=== PATIENT | male | born 1935 | race Caucasian/White ===

== ENCOUNTER 2022-10-06 18:45 | Inpatient (IN) | payer MEDICARE, OTHER ==
[~2022-10-06] VITALS: Ht 172.7 cm; Wt 75.7 kg
[2022-10-06] MEDS ORDERED: INSU100V SQ (19:17)
[2022-10-06] MEDS ORDERED: MERO1VIA22 IV (19:17)
[2022-10-06] MEDS ORDERED: FURO20 PO (19:17)
[2022-10-06] MEDS ORDERED: HEPA500018 SQ (19:17)
[2022-10-06 19:34] LABS: BASOPHILS % (AUTO) 0.3 % (0.0-2.0); EOSINOPHILS % (AUTO) 1.7 % (1.0-6.0); HEMATOCRIT 38.7 % (41-53); HEMOGLOBIN 12.7 g/dL (13.5-17.5); MEAN CORPUSCULAR HEMOGLOBIN 30.2 pg (26.0-34.0); MEAN CORPUSCULAR HGB CONC 32.7 G/dL (31.0-37.0); MEAN CORPUSCULAR VOLUME 92 fL (80-100); MONOCYTES # (AUTO) 0.7 K/uL (0.1-1.0); MONOCYTES % (AUTO) 7.6 % (2.0-9.0); NEUTROPHILS # (AUTO) 5.7 K/uL (1.8-7.7); NEUTROPHILS % (AUTO) 59.4 % (40.0-70.0); PLATELET COUNT (AUTO) 210 K/uL (150-450); RED CELL DISTRIBUTION WIDTH 16.2 % (11.5-14.5)
[2022-10-06 19:38] LABS: ANION GAP 6 mmol/L (8-16); CALCIUM, TOTAL 8.7 mg/dL (8.8-10.5); CARBON DIOXIDE 29 mmol/L (22-29); CHLORIDE 103 mmol/L (98-107); CREATININE 0.63 mg/dL (0.60-1.30); GLOMERULAR FILTR. RATE CALC > 60 mL/min (>60); GLUCOSE,RANDOM 99 mg/dL (70-110); POTASSIUM 4.3 mmol/L (3.5-5.1); SODIUM SERUM 138 mmol/L (136-145); UREA NITROGEN, BLOOD 18 mg/dL (7-18)
[2022-10-06 19:42] LABS: INR 1.1 (0.9-1.1); PROTHROMBIN TIME 11.6 SEC (9.4-11.6)
[2022-10-06 19:44] LABS: ALANINE AMINOTRANSFERASE 53 U/L (12-78); ALBUMIN 2.7 g/dL (3.4-5.0); ALKALINE PHOSPHATASE 95 U/L (46-116); ASPARTATE AMINOTRANSFERASE 28 U/L (15-37); BILIRUBIN,TOTAL 2.2 mg/dL (0.1-1.0); TOTAL PROTEIN, SERUM 6.2 g/dL (6.4-8.2)
[2022-10-06 19:51] LABS: COVID AG,FIA SOURCE NASAL SWAB
[2022-10-06 20:08] LABS: B-TYPE NATRIURETIC PEPTIDE 271 pg/mL (0-100)
[2022-10-06] MEDS ORDERED: ACETAMINOPHEN 325 MG TABLET PO PRN (20:15)
[2022-10-06] MEDS ORDERED: MORPHINE SULFATE 2 MG/ML SYRINGE IVP PRN (20:15)
[2022-10-06] MEDS ORDERED: ZOLPIDEM TARTRATE 5 MG TABLET PO PRN (20:15)
[2022-10-06] MEDS ORDERED: ONDANSETRON HCL 4 MG/2 ML VIAL IVP PRN (20:15)
[2022-10-06] MEDS ORDERED: IPRATROPIUM BROMIDE 0.5 MG/2.5 ML NEB SOLUTION NEB PRN (20:15)
[2022-10-06] MEDS ORDERED: BISACODYL 10 MG RECTAL RECTAL SUPPOSITORY PR PRN (20:15)
[2022-10-06] MEDS ORDERED: MAGNESIUM HYDROXIDE SUSPENSION 30 ML UDCUP PO PRN (20:15)
[2022-10-06] MEDS ORDERED: ALBUTEROL SULFATE 2.5 MG/0.5 ML NEB SOLUTION NEB PRN (20:15)
[2022-10-06 20:22] LABS: APPEARANCE,URINE CLEAR (CLEAR); BILIRUBIN,URINE NEGATIVE (NEGATIVE); GLUCOSE, URINE (UA) NEGATIVE (NEGATIVE); KETONES,URINE NEGATIVE (NEGATIVE); LEUKOCYTE ESTERASE ,URINE MODERATE (NEGATIVE); NITRATE,URINE NEGATIVE (NEGATIVE); OCCULT BLOOD,URINE MODERATE (NEGATIVE); PH,URINE 6.5 (5.0-8.0); PROTEIN,URINE 30-70 mg/dL (NEGATIVE); SPECIFIC GRAVITIY, URINE 1.012 (1.003-1.030)
[2022-10-06 20:31] LABS: BACTERIA,URINE Rare /HPF (None Seen)
[2022-10-06] MEDS: DOCUSATE SODIUM 100 MG CAPSULE PO SCH (20:56)
[2022-10-06] MEDS: HEPARIN SODIUM,PORCINE 5,000 UNITS/ML VIAL SQ SCH (23:36)
[2022-10-07] VITALS (7 sets, daily range): BP systolic 106–123; BP diastolic 53–74
[2022-10-07] MEDS: FUROSEMIDE 20 MG/2 ML VIAL IVP SCH (08:29)
[2022-10-07] MEDS: PANTOPRAZOLE SODIUM 40 MG/VIAL IVP SCH (08:29)
[2022-10-07] MEDS: HEPARIN SODIUM,PORCINE 5,000 UNITS/ML VIAL SQ SCH ×2 (08:29→16:00)
[2022-10-07] MEDS: DOCUSATE SODIUM 100 MG CAPSULE PO SCH ×2 (08:31→20:32)
[2022-10-07] MEDS ORDERED: VERAPAMIL HCL 2.5 MG/ML 2 ML VIAL ONE (14:45)
[2022-10-07] MEDS ORDERED: NITROGLYCERIN 50 MG/D5% WATER 250 ML ONE (14:45)
[2022-10-07] MEDS ORDERED: IOHEXOL 300 MG/ML 50 ML VIAL ONE (14:45)
[2022-10-07] MEDS ORDERED: SODIUM BICARBONATE 50 MEQ/50 ML VIAL ONE (14:46)
[2022-10-07] MEDS ORDERED: HEPARIN SODIUM 1000 UNITS/NS 1,000 ML ONE (14:46)
[2022-10-07] MEDS ORDERED: IOHEXOL 300 MG/ML 100 ML VIAL ONE (14:46)
[2022-10-07] MEDS ORDERED: LIDOCAINE/PF 1% 30 ML VIAL ONE (14:46)
[2022-10-07] MEDS ORDERED: LIDOCAINE 1% 30 ML/SOD BICARB 8.4% 4 ML SQ ONE (15:30)
[2022-10-07] MEDS ORDERED: VERAPAMIL HCL 2.5 MG/ML 2 ML VIAL IARTER ONE (15:30)
[2022-10-07] MEDS ORDERED: HEPARIN SODIUM 1000 UNITS/NS 1,000 ML IARTER ONE (15:30)
[2022-10-07] MEDS ORDERED: NITROGLYCERIN/D5W 50 MG/250 ML IV BOTTLE IARTER ONE (15:30)
[2022-10-07] MEDS ORDERED: SODIUM CHLORIDE 0.9% 500 ML IV ONE (15:30)
[2022-10-07] MEDS ORDERED: IOHEXOL 300 MG/ML 100 ML VIAL ICOR ONE (15:30)
[2022-10-07] MEDS ORDERED: HEPARIN SODIUM,PORCINE 1,000 UNITS/ML 10 ML VIAL IARTER ONE (15:30)
[2022-10-07] MEDS ORDERED: MIDAZOLAM HCL 2 MG/2 ML VIAL ONE (15:32)
[2022-10-07] MEDS ORDERED: FentaNYL CITRATE PF 100 MCG/2 ML VIAL ONE (15:32)
[2022-10-07] MEDS ORDERED: PHENYLEPHRINE HCL IN 0.9% NACL 400 MCG/10 ML SYRINGE IVP ONE (15:46)
[2022-10-07] MEDS: METOPROLOL SUCCINATE 25 MG ER TABLET PO SCH (20:32)
[2022-10-07] MEDS: SACUBITRIL/VALSARTAN 24-26 MG TABLET PO SCH (20:32)
[2022-10-07] MEDS ORDERED: *CLINICAL-MEROPENEM DOSING CLINICAL ONE (23:30)
[2022-10-08 00:19] VITALS: BP 99/64
[2022-10-08] MEDS: HEPARIN SODIUM,PORCINE 5,000 UNITS/ML VIAL SQ SCH ×4 (00:56→15:21)
[2022-10-08] MEDS: MEROPENEM 1 GM in SODIUM CHLORIDE 0.9% 100 ML IV SCH ×3 (01:01→15:18)
[2022-10-08 04:20] VITALS: BP 93/62
[2022-10-08 06:19] LABS: BASOPHILS % (AUTO) 0.6 % (0.0-2.0); EOSINOPHILS % (AUTO) 2.4 % (1.0-6.0); HEMATOCRIT 38.9 % (41-53); HEMOGLOBIN 13.4 g/dL (13.5-17.5); LYMPHOCYTES % (AUTO) 30.9 % (22.0-44.0); MEAN CORPUSCULAR HEMOGLOBIN 31.4 pg (26.0-34.0); MEAN CORPUSCULAR HGB CONC 34.4 G/dL (31.0-37.0); MEAN CORPUSCULAR VOLUME 91 fL (80-100); MONOCYTES # (AUTO) 0.7 K/uL (0.1-1.0); NEUTROPHILS # (AUTO) 5.7 K/uL (1.8-7.7); NEUTROPHILS % (AUTO) 59.1 % (40.0-70.0); PLATELET COUNT (AUTO) 226 K/uL (150-450); RED BLOOD CELL COUNT(AUTO) 4.26 MIL/uL (4.50-5.90); RED CELL DISTRIBUTION WIDTH 16.3 % (11.5-14.5)
[2022-10-08 06:36] LABS: ANION GAP 3 mmol/L (8-16); CALCIUM, TOTAL 8.6 mg/dL (8.8-10.5); CARBON DIOXIDE 29 mmol/L (22-29); CHLORIDE 105 mmol/L (98-107); CREATININE 0.75 mg/dL (0.60-1.30); GLOMERULAR FILTR. RATE CALC > 60 mL/min (>60); GLUCOSE,RANDOM 106 mg/dL (70-110); PHOSPHORUS 2.9 mg/dL (2.5-4.9); POTASSIUM 4.5 mmol/L (3.5-5.1); SODIUM SERUM 137 mmol/L (136-145); UREA NITROGEN, BLOOD 21 mg/dL (7-18)
[2022-10-08 07:31] VITALS: BP 113/62
[2022-10-08] MEDS: PANTOPRAZOLE SODIUM 40 MG/VIAL IVP SCH (08:28)
[2022-10-08] MEDS: SACUBITRIL/VALSARTAN 24-26 MG TABLET PO SCH ×2 (08:29→20:47)
[2022-10-08] MEDS: METOPROLOL SUCCINATE 25 MG ER TABLET PO SCH (08:29)
[2022-10-08] MEDS: DOCUSATE SODIUM 100 MG CAPSULE PO SCH ×2 (08:29→20:47)
[2022-10-08] MEDS: FUROSEMIDE 20 MG/2 ML VIAL IVP SCH (08:29)
[2022-10-08 12:55] VITALS: BP 104/67
[2022-10-08] MEDS: ASPIRIN 81 MG DR TABLET PO SCH (15:17)
[2022-10-08] MEDS: ATORVASTATIN CALCIUM 40 MG TABLET PO SCH (15:17)
[2022-10-08 15:27] VITALS: BP 101/61
[2022-10-08 20:00] VITALS: BP 99/62
[2022-10-09] VITALS (15 sets, daily range): BP systolic 90–126; BP diastolic 51–76
[2022-10-09] MEDS: HEPARIN SODIUM,PORCINE 5,000 UNITS/ML VIAL SQ SCH ×4 (00:39→23:42)
[2022-10-09] MEDS: MEROPENEM 1 GM in SODIUM CHLORIDE 0.9% 100 ML IV SCH ×4 (00:39→23:41)
[2022-10-09] MEDS ORDERED: VANCOMYCIN HCL 1 GM/VIAL ONE (08:06)
[2022-10-09] MEDS ORDERED: SODIUM BICARBONATE 50 MEQ/50 ML VIAL ONE (08:06)
[2022-10-09] MEDS ORDERED: IOHEXOL 300 MG/ML 50 ML VIAL ONE (08:06)
[2022-10-09] MEDS ORDERED: LIDOCAINE/PF 1% 30 ML VIAL ONE (08:06)
[2022-10-09] MEDS: CLOPIDOGREL BISULFATE 75 MG TABLET PO SCH (09:00)
[2022-10-09] MEDS: FUROSEMIDE 20 MG TABLET PO SCH (09:00)
[2022-10-09] MEDS: ATORVASTATIN CALCIUM 40 MG TABLET PO SCH (09:00)
[2022-10-09] MEDS: PANTOPRAZOLE SODIUM 40 MG/VIAL IVP SCH (09:00)
[2022-10-09] MEDS: SACUBITRIL/VALSARTAN 24-26 MG TABLET PO SCH ×2 (09:00→20:59)
[2022-10-09] MEDS: ASPIRIN 81 MG DR TABLET PO SCH (09:00)
[2022-10-09] MEDS: METOPROLOL SUCCINATE 25 MG ER TABLET PO SCH (09:00)
[2022-10-09] MEDS: DOCUSATE SODIUM 100 MG CAPSULE PO SCH ×2 (09:00→20:59)
[2022-10-09] MEDS ORDERED: DiphenhydrAMINE HCL 50 MG/ML VIAL ONE (09:03)
[2022-10-09] MEDS ORDERED: MIDAZOLAM HCL 2 MG/2 ML VIAL ONE (09:03)
[2022-10-09] MEDS ORDERED: FentaNYL CITRATE PF 100 MCG/2 ML VIAL ONE (09:03)
[2022-10-09] MEDS ORDERED: DEXTROSE 5% IV ONE (09:30)
[2022-10-09] MEDS ORDERED: FentaNYL CITRATE PF 100 MCG/2 ML VIAL IVP ONE ×2 (09:30)
[2022-10-09] MEDS ORDERED: MIDAZOLAM HCL 2 MG/2 ML VIAL PO ONE (09:30)
[2022-10-09] MEDS ORDERED: WATER IV ONE (09:30)
[2022-10-09] MEDS ORDERED: VANCOMYCIN HCL IV ONE (09:30)
[2022-10-09] MEDS ORDERED: VANCOMYCIN HCL 1 GM/VIAL IRRIG ONE (09:30)
[2022-10-09] MEDS ORDERED: LIDOCAINE 1% 30 ML/SOD BICARB 8.4% 4 ML SQ ONE (09:30)
[2022-10-09] MEDS ORDERED: MIDAZOLAM HCL 2 MG/2 ML VIAL IVP ONE (09:45)
[2022-10-09] MEDS: HYDROCODONE/ACETAMINOPHEN 5-325 MG TABLET PO PRN (23:05)
[2022-10-10] VITALS (7 sets, daily range): BP systolic 101–132; BP diastolic 47–71
[2022-10-10] MEDS: HEPARIN SODIUM,PORCINE 5,000 UNITS/ML VIAL SQ SCH ×2 (08:52→15:07)
[2022-10-10] MEDS: MEROPENEM 1 GM in SODIUM CHLORIDE 0.9% 100 ML IV SCH ×2 (08:52→15:08)
[2022-10-10] MEDS: CLOPIDOGREL BISULFATE 75 MG TABLET PO SCH (08:53)
[2022-10-10] MEDS: DOCUSATE SODIUM 100 MG CAPSULE PO SCH ×2 (08:53→22:34)
[2022-10-10] MEDS: PANTOPRAZOLE SODIUM 40 MG/VIAL IVP SCH (08:53)
[2022-10-10] MEDS: METOPROLOL SUCCINATE 25 MG ER TABLET PO SCH (08:53)
[2022-10-10] MEDS: ASPIRIN 81 MG DR TABLET PO SCH (08:53)
[2022-10-10] MEDS: ATORVASTATIN CALCIUM 40 MG TABLET PO SCH (08:54)
[2022-10-10] MEDS: SACUBITRIL/VALSARTAN 24-26 MG TABLET PO SCH ×2 (08:54→22:34)
[2022-10-10] MEDS: FUROSEMIDE 20 MG TABLET PO SCH (08:54)
[2022-10-10] MEDS: HYDROCODONE/ACETAMINOPHEN 5-325 MG TABLET PO PRN ×2 (13:05→22:34)
[2022-10-10 16:18] LABS: BASOPHILS % (AUTO) 0.2 % (0.0-2.0); EOSINOPHILS % (AUTO) 0.9 % (1.0-6.0); HEMATOCRIT 36.4 % (41-53); HEMOGLOBIN 11.8 g/dL (13.5-17.5); LYMPHOCYTES % (AUTO) 18.2 % (22.0-44.0); MEAN CORPUSCULAR HEMOGLOBIN 30.3 pg (26.0-34.0); MEAN CORPUSCULAR HGB CONC 32.4 G/dL (31.0-37.0); MEAN CORPUSCULAR VOLUME 94 fL (80-100); MONOCYTES # (AUTO) 0.9 K/uL (0.1-1.0); MONOCYTES % (AUTO) 7.8 % (2.0-9.0); NEUTROPHILS # (AUTO) 8.1 K/uL (1.8-7.7); NEUTROPHILS % (AUTO) 72.9 % (40.0-70.0); PLATELET COUNT (AUTO) 163 K/uL (150-450); RED BLOOD CELL COUNT(AUTO) 3.89 MIL/uL (4.50-5.90); RED CELL DISTRIBUTION WIDTH 15.6 % (11.5-14.5)
[2022-10-10 16:21] LABS: ANION GAP 7 mmol/L (8-16); CALCIUM, TOTAL 8.3 mg/dL (8.8-10.5); CARBON DIOXIDE 26 mmol/L (22-29); CHLORIDE 104 mmol/L (98-107); CREATININE 0.61 mg/dL (0.60-1.30); GLUCOSE,RANDOM 117 mg/dL (70-110); POTASSIUM 4.1 mmol/L (3.5-5.1); SODIUM SERUM 137 mmol/L (136-145); UREA NITROGEN, BLOOD 25 mg/dL (7-18)
[2022-10-10 16:23] LABS: GLOMERULAR FILTR. RATE CALC > 60 mL/min (>60)
[2022-10-10 16:26] LABS: ALANINE AMINOTRANSFERASE 30 U/L (12-78); ALBUMIN 2.4 g/dL (3.4-5.0); ALKALINE PHOSPHATASE 87 U/L (46-116); ASPARTATE AMINOTRANSFERASE 22 U/L (15-37); BILIRUBIN,TOTAL 1.6 mg/dL (0.1-1.0)
[2022-10-11] MEDS: MEROPENEM 1 GM in SODIUM CHLORIDE 0.9% 100 ML IV SCH ×4 (00:21→23:40)
[2022-10-11 06:11] VITALS: BP 108/70
[2022-10-11 07:43] VITALS: BP 119/55
[2022-10-11] MEDS: CLOPIDOGREL BISULFATE 75 MG TABLET PO SCH (09:09)
[2022-10-11] MEDS: HEPARIN SODIUM,PORCINE 5,000 UNITS/ML VIAL SQ SCH ×4 (09:09→23:39)
[2022-10-11] MEDS: DOCUSATE SODIUM 100 MG CAPSULE PO SCH ×2 (09:09→21:43)
[2022-10-11] MEDS: FUROSEMIDE 20 MG TABLET PO SCH (09:09)
[2022-10-11] MEDS: SACUBITRIL/VALSARTAN 24-26 MG TABLET PO SCH ×2 (09:10→21:43)
[2022-10-11] MEDS: ATORVASTATIN CALCIUM 40 MG TABLET PO SCH (09:10)
[2022-10-11] MEDS: ASPIRIN 81 MG DR TABLET PO SCH (09:10)
[2022-10-11] MEDS: METOPROLOL SUCCINATE 25 MG ER TABLET PO SCH (09:10)
[2022-10-11] MEDS: PANTOPRAZOLE SODIUM 40 MG/VIAL IVP SCH (09:11)
[2022-10-11 11:28] VITALS: BP 110/58
[2022-10-11 15:00] VITALS: BP 106/65
[2022-10-11] MEDS: HYDROCODONE/ACETAMINOPHEN 5-325 MG TABLET PO PRN (16:45)
[2022-10-11 19:15] VITALS: BP 100/56
[2022-10-11 23:46] VITALS: BP 120/74
[2022-10-12 04:11] VITALS: BP 108/63
[2022-10-12 06:10] LABS: BASOPHILS % (AUTO) 0.3 % (0.0-2.0); EOSINOPHILS % (AUTO) 1.8 % (1.0-6.0); HEMATOCRIT 37.4 % (41-53); HEMOGLOBIN 12.8 g/dL (13.5-17.5); LYMPHOCYTES # (AUTO) 2.4 K/uL (1.0-4.8); LYMPHOCYTES % (AUTO) 27.7 % (22.0-44.0); MEAN CORPUSCULAR HEMOGLOBIN 31.4 pg (26.0-34.0); MEAN CORPUSCULAR HGB CONC 34.2 G/dL (31.0-37.0); MEAN CORPUSCULAR VOLUME 92 fL (80-100); MONOCYTES # (AUTO) 0.6 K/uL (0.1-1.0); MONOCYTES % (AUTO) 6.8 % (2.0-9.0); NEUTROPHILS # (AUTO) 5.5 K/uL (1.8-7.7); NEUTROPHILS % (AUTO) 63.4 % (40.0-70.0); PLATELET COUNT (AUTO) 177 K/uL (150-450); RED BLOOD CELL COUNT(AUTO) 4.06 MIL/uL (4.50-5.90); RED CELL DISTRIBUTION WIDTH 15.5 % (11.5-14.5)
[2022-10-12 07:10] VITALS: BP 104/53
[2022-10-12] MEDS: HEPARIN SODIUM,PORCINE 5,000 UNITS/ML VIAL SQ SCH ×4 (08:00→23:48)
[2022-10-12] MEDS: MEROPENEM 1 GM in SODIUM CHLORIDE 0.9% 100 ML IV SCH ×3 (09:43→23:52)
[2022-10-12] MEDS: PANTOPRAZOLE SODIUM 40 MG/VIAL IVP SCH (09:44)
[2022-10-12] MEDS: METOPROLOL SUCCINATE 25 MG ER TABLET PO SCH (09:46)
[2022-10-12] MEDS: FUROSEMIDE 20 MG TABLET PO SCH (09:46)
[2022-10-12] MEDS: CLOPIDOGREL BISULFATE 75 MG TABLET PO SCH (09:46)
[2022-10-12] MEDS: DOCUSATE SODIUM 100 MG CAPSULE PO SCH ×2 (09:46→21:00)
[2022-10-12] MEDS: ATORVASTATIN CALCIUM 40 MG TABLET PO SCH (09:46)
[2022-10-12] MEDS: SACUBITRIL/VALSARTAN 24-26 MG TABLET PO SCH ×2 (09:46→21:35)
[2022-10-12] MEDS: ASPIRIN 81 MG DR TABLET PO SCH (09:46)
[2022-10-12 11:39] VITALS: BP 99/58
[2022-10-12] MEDS: HYDROCODONE/ACETAMINOPHEN 5-325 MG TABLET PO PRN ×2 (12:47→21:36)
[2022-10-12 15:26] VITALS: BP 103/54
[2022-10-12 19:40] VITALS: BP 117/73
[2022-10-13 00:09] VITALS: BP 127/74
[2022-10-13 03:57] VITALS: BP 99/58
[2022-10-13 07:28] VITALS: BP 98/64
[2022-10-13] MEDS: MEROPENEM 1 GM in SODIUM CHLORIDE 0.9% 100 ML IV SCH ×3 (08:55→23:15)
[2022-10-13] MEDS: HEPARIN SODIUM,PORCINE 5,000 UNITS/ML VIAL SQ SCH ×3 (08:56→23:15)
[2022-10-13] MEDS: ATORVASTATIN CALCIUM 40 MG TABLET PO SCH (08:56)
[2022-10-13] MEDS: CLOPIDOGREL BISULFATE 75 MG TABLET PO SCH (08:56)
[2022-10-13] MEDS: PANTOPRAZOLE SODIUM 40 MG/VIAL IVP SCH (08:56)
[2022-10-13] MEDS: METOPROLOL SUCCINATE 25 MG ER TABLET PO SCH (08:56)
[2022-10-13] MEDS: ASPIRIN 81 MG DR TABLET PO SCH (08:56)
[2022-10-13] MEDS: SACUBITRIL/VALSARTAN 24-26 MG TABLET PO SCH ×2 (08:57→20:39)
[2022-10-13] MEDS: DOCUSATE SODIUM 100 MG CAPSULE PO SCH ×2 (08:57→20:39)
[2022-10-13] MEDS: FUROSEMIDE 20 MG TABLET PO SCH (08:57)
[2022-10-13] MEDS ORDERED: SODIUM CHLORIDE 0.9% 250 ML IV ONE (09:08)
[2022-10-13 11:37] VITALS: BP 99/63
[2022-10-13 15:31] VITALS: BP 98/62
[2022-10-13 19:37] VITALS: BP 103/61
[2022-10-14 00:07] VITALS: BP 111/61
[2022-10-14] MEDS ORDERED: SODIUM CHLORIDE 0.9% 250 ML IV ONE (02:48)
[2022-10-14 04:32] VITALS: BP 93/59
[2022-10-14 07:46] VITALS: BP 128/69
[2022-10-14] MEDS: ASPIRIN 81 MG DR TABLET PO SCH (08:18)
[2022-10-14] MEDS: FUROSEMIDE 20 MG TABLET PO SCH (08:18)
[2022-10-14] MEDS: CLOPIDOGREL BISULFATE 75 MG TABLET PO SCH (08:18)
[2022-10-14] MEDS: SACUBITRIL/VALSARTAN 24-26 MG TABLET PO SCH (08:18)
[2022-10-14] MEDS: METOPROLOL SUCCINATE 25 MG ER TABLET PO SCH (08:18)
[2022-10-14] MEDS: PANTOPRAZOLE SODIUM 40 MG/VIAL IVP SCH (08:19)
[2022-10-14] MEDS: DOCUSATE SODIUM 100 MG CAPSULE PO SCH (08:19)
[2022-10-14] MEDS: ATORVASTATIN CALCIUM 40 MG TABLET PO SCH (08:19)
[2022-10-14] MEDS: HEPARIN SODIUM,PORCINE 5,000 UNITS/ML VIAL SQ SCH ×2 (08:19→16:21)
[2022-10-14] MEDS: MEROPENEM 1 GM in SODIUM CHLORIDE 0.9% 100 ML IV SCH ×2 (08:20→16:21)
[2022-10-14 11:23] VITALS: BP 105/55
[2022-10-14 15:53] VITALS: BP 99/54
== END 2022-10-14 19:01 | DRG 222 ==
LOC: EMS 18:53 → 5S 10-07 05:00
PROVIDERS: ADMIT Hospitalist; ATTEND Hospitalist
PROC: 4A023N7 Measurement of Cardiac Sampling and Pressure, Left Heart, Percutaneous Approach (ICD-10-PCS; principal; 2022-10-07)
PROC: B2111ZZ Fluoroscopy of Multiple Coronary Arteries using Low Osmolar Contrast (ICD-10-PCS; 2022-10-07)
PROC: 0JH608Z Insertion of Defibrillator Generator into Chest Subcutaneous Tissue and Fascia, Open Approach (ICD-10-PCS; 2022-10-09)
PROC: 02HK3KZ Insertion of Defibrillator Lead into Right Ventricle, Percutaneous Approach (ICD-10-PCS; 2022-10-09)
DX: I11.0 Hypertensive heart disease with heart failure (principal); E43 Unspecified severe protein-calorie malnutrition; I50.23 Acute on chronic systolic (congestive) heart failure; I47.1 Supraventricular tachycardia; I47.20 Ventricular tachycardia, unspecified; I45.2 Bifascicular block; N39.0 Urinary tract infection, site not specified; E11.9 Type 2 diabetes mellitus without complications; F03.90 Unspecified dementia, unspecified severity, without behavioral disturbance, psychotic disturbance, mood disturbance, and anxiety; I49.3 Ventricular premature depolarization; N40.0 Benign prostatic hyperplasia without lower urinary tract symptoms; Z20.822 Contact with and (suspected) exposure to COVID-19; E78.00 Pure hypercholesterolemia, unspecified; I25.10 Atherosclerotic heart disease of native coronary artery without angina pectoris; I25.5 Ischemic cardiomyopathy; I34.0 Nonrheumatic mitral (valve) insufficiency; I42.0 Dilated cardiomyopathy; Z75.1 Person awaiting admission to adequate facility elsewhere; Z87.440 Personal history of urinary (tract) infections; Z95.5 Presence of coronary angioplasty implant and graft; Z68.25 Body mass index [BMI] 25.0-25.9, adult; Z79.899 Other long term (current) drug therapy; Z87.01 Personal history of pneumonia (recurrent); Z88.0 Allergy status to penicillin; Z90.49 Acquired absence of other specified parts of digestive tract
CPT/HCPCS: 33249; 71045; 71046; 76000; 80048; 80053; 81001; 83735; 83880; 84100; 84484; 85025; 85610; 85730; 87081; 87086; 87186; 93005; 93880; 97112; 97163; 97530; 99285; C9113; J1200; J1644; J1940; J2185; J2250; J2270; J3010; J3370; J3490; J7040; J7050; J7060; Q9967; 36415-L1; 36415-TC; Z7610